=== PATIENT | female | born 1970 | race Caucasian/White ===

== ENCOUNTER 2021-03-01 14:49 | Emergency (ER) | payer BC ==
[~2021-03-01] VITALS: Ht 175 cm; Wt 73.0 kg
[~2021-03-01 14:49] MED LIST: AGM875T PO; DOXY100C2 PO; HORMONE; ONDAN4ODT PO; PRED20TA PO
[2021-03-01] MEDS ORDERED: KETOROLAC 30 MG/ML VIAL IVP STA (15:09)
[2021-03-01] MEDS ORDERED: ASPIRIN 81 MG CHEW (CHILDREN'S ASA) PO ONE (15:15)
--- NOTE | 2021-03-01 15:21 | ED Chest Pain ---
General Chief Complaint: Chest Pain Stated Complaint: CP Nursing Triage Note: PT TO RM 2 WITH CC OF CHEST PAIN THAT SHE WOKE UP WITH AT 0400 THIS A.M. MID CHEST PRESSURE Source: patient Exam Limitations: no limitations History of Present Illness Date Seen by Provider: Mar 01, 2021 Time Seen by Provider: 15:00 Initial Comments Here with complaint of chest pain that is central that woke her up at a.m. States that pain is a sharp pressure that is central and nonradiating and just between the breast at the bra line. Not reproducible. She has never had pain like this before and never had cardiac work-up. She is a little scared currently. Apparently her father does have some family history although he had alcohol abuse and was a smoker as well. Denies recent illness, nausea, vomiting, diarrhea, sweating or weakness. Timing/Duration: 12 hours Severity/Quality: moderate, pressure, sharp Location: central Radiation: no radiation Activities at Onset: sleep Prior CP/Workup: no prior chest pain, no prior cardiac workup Modifying Factors: improves with rest ASA po ORTHO/PROSTHETIC AIDE: No NTG SL ORTHO/PROSTHETIC AIDE: No Associated Symptoms: No abdominal pain, No back pain, No diaphoresis, No fatigue, No heartburn, No nausea/vomiting, No shortness of breath, No weakness Allergies and Home Medications Allergies Coded Allergies: paroxetine (Verified Allergy, Intermediate, 03/01/21) Home Medications Amoxicillin/Clavulanate K 875 Mg Tab, 1 TAB PO BID Prescribed by: CARLOS EDUARDO RODRIGUES on 01/10/151752 Doxycycline Hyclate 100 Mg Capsule, 0 PO DAILY 1 CAP Q12HR TODAY, THE 1 CAP DAILY Prescribed by: CARLOS EDUARDO RODRIGUES on 05/21/122242 Ondansetron Hcl 4 Mg Tab, 4 MG PO Q4H Prescribed by: CARLOS EDUARDO RODRIGUES on 05/21/122242 Prednisone 20 Mg Tablet, 20 MG PO DAILY Prescribed by: CARLOS EDUARDO RODRIGUES on 01/10/151752 Patient Home Medication List Home Medication List Reviewed: Yes Review of Systems Review of Systems Constitutional: see HPI; No chills, No fever EENTM: See HPI Respiratory: See HPI Cardiovascular: See HPI Gastrointestinal: See HPI Genitourinary: No Symptoms Reported Musculoskeletal: No back pain, No muscle pain Skin: No change in color, No lesions Psychiatric/Neurological: No Symptoms Reported All Other Systems Reviewed Negative Unless Noted: Yes Past Czkkily-Degjpi-Pqozdf Hx Patient Social History Tobacco Use?: Yes Tobacco type used: Cigarettes Smoking Status: Current Everyday Smoker Substance use?: No Past Medical History Section, Hysterectomy, Tubal Ligation Reproductive Disorders: No Sexually Transmitted Disease: No Family Medical History Reviewed Nursing Family Hx Heart Disease Physical Exam Vital Signs Vital Signs - First Documented 03/01/21 14:53 Temp 35.6 Pulse 78 Resp 20 B/P (MAP) 133/90 (104) Pulse Ox 100 O2 Delivery Room Air Capillary Refill : Less Than 3 Seconds Height, Weight, BMI Height: 5'7" Weight: 155lbs. oz. 70.966545ih; 23.00 BMI Method:Estimated General Appearance: WD/WN, Anxious HEENT: PERRL/EOMI, Pharynx Normal Neck: Non Tender, Supple Respiratory: Lungs Clear, Normal Breath Sounds Cardiovascular: Regular Rate, Rhythm, No Murmur Gastrointestinal: Non Tender, Soft Extremity: Normal Range of Motion, Non Tender Neurologic/Psychiatric: Alert, Oriented x3 Skin: Normal Color, Warm/Dry Progress/Results/Core Measures Results/Orders Lab Results Laboratory Tests Test 03/01/21 15:00 Range/Units White Blood Count 7.2 4.3-11.0 10^3/uL Red Blood Count 5.03 3.80-5.11 10^6/uL Hemoglobin 14.8 11.5-16.0 g/dL Hematocrit 44 35-52 % Mean Corpuscular Volume 88 80-99 fL Mean Corpuscular Hemoglobin 29 25-34 pg Mean Corpuscular Hemoglobin Concent 34 32-36 g/dL Red Cell Distribution Width 11.9 10.0-14.5 % Platelet Count 278 130-400 10^3/uL Mean Platelet Volume 9.7 9.0-12.2 fL Immature Granulocyte % (Auto) 0 % Neutrophils (%) (Auto) 53 42-75 % Lymphocytes (%) (Auto) 39 12-44 % Monocytes (%) (Auto) 7 0-12 % Eosinophils (%) (Auto) 1 0-10 % Basophils (%) (Auto) 0 0-10 % Neutrophils # (Auto) 3.8 1.8-7.8 10^3/uL Lymphocytes # (Auto) 2.8 1.0-4.0 10^3/uL Monocytes # (Auto) 0.5 0.0-1.0 10^3/uL Eosinophils # (Auto) 0.1 0.0-0.3 10^3/uL Basophils # (Auto) 0.0 0.0-0.1 10^3/uL Immature Granulocyte # (Auto) 0.0 0.0-0.1 10^3/uL Prothrombin Time 13.4 12.2-14.7 SEC INR Comment 1.0 0.8-1.4 Activated Partial Thromboplast Time 26 24-35 SEC D-Dimer 0.32 0.00-0.49 UG/ML Sodium Level 141 135-145 MMOL/L Potassium Level 3.5 L 3.6-5.0 MMOL/L Chloride Level 104 98-107 MMOL/L Carbon Dioxide Level 27 21-32 MMOL/L Anion Gap 10 5-14 MMOL/L Blood Urea Nitrogen 13 7-18 MG/DL Creatinine 0.89 0.60-1.30 MG/DL Estimat Glomerular Filtration Rate > 60 BUN/Creatinine Ratio 15 Glucose Level 69 L 70-105 MG/DL Calcium Level 9.9 8.5-10.1 MG/DL Corrected Calcium 9.6 8.5-10.1 MG/DL Magnesium Level 2.5 H 1.6-2.4 MG/DL Total Bilirubin 0.3 0.1-1.0 MG/DL Aspartate Amino Transf (AST/SGOT) 20 5-34 U/L Alanine Aminotransferase (ALT/SGPT) 17 0-55 U/L Alkaline Phosphatase 67 40-136 U/L Myoglobin 50.2 10.0-92.0 NG/ML Troponin I < 0.028 <0.028 NG/ML Total Protein 7.4 6.4-8.2 GM/DL Albumin 4.4 3.2-4.5 GM/DL My Orders Orders - PATRICE JOAQUIN MD Cbc With Automated Diff (03/01/21 15:09) Magnesium (03/01/21 15:09) Chest 1 View, Ap/Pa Only (03/01/21 15:09) Ekg Tracing (03/01/21 15:09) Comprehensive Metabolic Panel (03/01/21 15:09) Myoglobin Serum (03/01/21 15:09) Protime With Inr (03/01/21 15:09) Partial Thromboplastin Time (03/01/21 15:09) O2 (03/01/21 15:09) Monitor-Rhythm Ecg Trace Only (03/01/21 15:09) Lipid Panel (03/02/21 06:00) Ed Iv/Invasive Line Start (03/01/21 15:09) Troponin I (03/01/21 15:09) Aspirin Chewable Tablet (Baby Aspirin Ch (03/01/21 15:15) Ketorolac Injection (Toradol Injection) (03/01/21 15:09) Fibrin Degradation Products (03/01/21 15:00) Lidocaine 2% Viscous 15 Ml (Xylocaine Vi (03/01/21 15:45) Antacid Suspension (Mylanta Suspension (03/01/21 15:45) Medications Given in ED Current Medications Medications Dose Ordered Sig/Rashmi Route Start Time Stop Time Status Last Admin Dose Admin Al Hydrox/Mg Hydrox/Simethicone 30 ml ONCE ONCE PO 03/01/21 15:45 03/01/21 15:46 DC 03/01/21 15:43 30 ML Aspirin 324 mg ONCE ONCE PO 03/01/21 15:15 03/01/21 15:20 DC 03/01/21 15:44 324 MG Lidocaine HCl 15 ml ONCE ONCE PO 03/01/21 15:45 03/01/21 15:46 DC 03/01/21 15:43 15 ML Vital Signs/I&O 03/01/21 03/01/21 03/01/21 14:53 15:03 15:43 Temp 35.6 35.6 Pulse 78 Resp 20 B/P (MAP) 133/90 (104) Pulse Ox 100 O2 Delivery Room Air Room Air Blood Pressure Mean: 104 Progress Progress Note : Progress Note Seen and evaluated. IV, labs, chest x-ray and EKG ordered. ASA 324 mg p.o. GI cocktail ordered. Toradol 30 mg IV ordered. Monitor patient. 1730: Pain-free currently in has been for the last 30 minutes and declined since medications given. Troponin negative. No indication of cardiac cause or pulmonary embolism. I do believe this is more related to reflux type disease given current setting although I did discuss with her at length regarding the need for follow-up with cardiology. She will follow up with cardiology as outpatient as well as surgery for upper endoscopy and her primary care doctor. Discharged home with return precautions. Patient verbalized understanding of instructions and agreement with plan. Initial ECG Impression Date: Mar 01, 2021 Initial ECG Impression Time: 14:55 Initial ECG Rate: 72 Initial ECG Rhythm: Normal Sinus Comment Sinus rhythm with left atrial abnormality. Normal axis. No evidence of ST elevation CT. No previous available for comparison. Interpreted by me. Diagnostic Imaging Diagonstic Imaging: Xray Plain Films/CT/US/NM/MRI: chest Comments [facility], [place] NAME: [facility] REC#: [id number] PT STATUS: REG ER : 1970 PHYSICIAN: PATRICE JOAQUIN MD ADMIT DATE: 03/01/21/ER Signed Date of Exam:03/01/21 CHEST 1 VIEW, AP/PA ONLY INDICATION: Chest pain. COMPARISON: None available. TECHNIQUE: Single frontal radiograph of the chest dated 03/01/2021. FINDINGS: The cardiac silhouette is within normal limits in size. No significant pulmonary vascular congestion. The left lung is clear. Blunting of the right costophrenic angle. Otherwise, the right lung is clear. No significant left pleural effusion. No pneumothorax. No acute osseous abnormality. IMPRESSION: Blunting of the right costophrenic angle is felt to relate to a small pleural effusion versus mild pleural thickening/scarring. Dictated by: Dictated on workstation # [id number] Dict: 03/01/21 1625 Trans: 03/01/21 1711 [id number] Interpreted by: RICHI OBRIEN MD Electronically signed by: RICHI OBRIEN MD 03/01/21 1711 Departure Impression Primary Impression: Chest pain Qualified Codes: R07.9 - Chest pain, unspecified Additional Impression: Epigastric abdominal pain Disposition: 01 HOME, SELF-CARE Condition: Improved Departure-Patient Inst. Decision time for Depature: 17:34 Referrals: AYAAN KOWALSKI (PCP) Primary Care Physician [facility] (Family) Primary Care Physician JUNIOR CALDERON MD, BASHAR J MD Patient Instructions: Chest Pain (DC), Acid Reflux and Gastroesophageal Reflux Disease in Adults Add. Discharge Instructions: All discharge instructions reviewed with patient and/or family. Voiced understanding. You should initiate omeprazole [id number] 20 mg daily for the next 6 weeks. For the next 7 days and then as needed you may take Pepcid or the generic famotidine, 20 mg once or twice daily to reduce symptoms. You should avoid caffeinated beverages or high acid or spicy foods or drinks. You may take Tylenol/acetaminophen 1000 mg every 6-8 hours as needed for pain. You should probably avoid ibuprofen, Motrin, naproxen or Aleve as this may increase your stomach upset. Follow-up with the surgeon listed or of your choosing for further evaluation including upper endoscopy (scope) as needed. Follow-up with forestry farm laborer listed or of your choosing for further evaluation related to heart problems given your history. Return for worse pain, fever, vomiting, weakness, breathing problems, inappropriate sweating or other concerns as needed. PATRICE JOAQUIN MD Mar 01, 2021 15:21
[2021-03-01 15:28] LABS: BASOPHILS % (AUTO) 0 % (0-10); EOSINOPHILS # (AUTO) 0.1 10^3/uL (0.0-0.3); EOSINOPHILS % (AUTO) 1 % (0-10); HEMATOCRIT 44 % (35-52); HEMOGLOBIN 14.8 g/dL (11.5-16.0); LYMPHOCYTES # (AUTO) 2.8 10^3/uL (1.0-4.0); LYMPHOCYTES % (AUTO) 39 % (12-44); MEAN CORPUSCULAR HEMOGLOBIN 29 pg (25-34); MEAN CORPUSCULAR HGB CONC 34 g/dL (32-36); MEAN CORPUSCULAR VOLUME 88 fL (80-99); MEAN PLATELET VOLUME 9.7 fL (9.0-12.2); MONOCYTES # (AUTO) 0.5 10^3/uL (0.0-1.0); MONOCYTES % (AUTO) 7 % (0-12); NEUTROPHILS # (AUTO) 3.8 10^3/uL (1.8-7.8); NEUTROPHILS % (AUTO) 53 % (42-75); PLATELET COUNT 278 10^3/uL (130-400); WHITE BLOOD COUNT 7.2 10^3/uL (4.3-11.0)
[2021-03-01 15:39] LABS: ALANINE AMINOTRANSFERASE 17 U/L (0-55); ALBUMIN 4.4 GM/DL (3.2-4.5); ALKALINE PHOSPHATASE 67 U/L (40-136); BILIRUBIN,TOTAL 0.3 MG/DL (0.1-1.0); BUN/CREATININE RATIO 15; CALCIUM 9.9 MG/DL (8.5-10.1); CARBON DIOXIDE 27 MMOL/L (21-32); CHLORIDE 104 MMOL/L (98-107); CREATININE SERUM 0.89 MG/DL (0.60-1.30); GFR ESTIMATED > 60; GLUCOSE 69 MG/DL (70-105); MAGNESIUM 2.5 MG/DL (1.6-2.4); POTASSIUM 3.5 MMOL/L (3.6-5.0); SODIUM 141 MMOL/L (135-145); TOTAL PROTEIN 7.4 GM/DL (6.4-8.2)
[2021-03-01] MEDS ORDERED: ANTACID SUSP 30 ML UDC (MYLANTA) PO ONE (15:45)
[2021-03-01] MEDS ORDERED: LIDOCAINE 2% VISCOUS 15 ML UDC PO ONE (15:45)
[2021-03-01 15:52] LABS: FIBRIN DEGRADATION PRODUCTS 0.32 UG/ML (0.00-0.49); PROTHROMBIN TIME PATIENT 13.4 SEC (12.2-14.7)
--- NOTE | 2021-03-01 16:29 | Diagnostic Imaging Report ---
INDICATION: Chest pain. COMPARISON: None available. TECHNIQUE: Single frontal radiograph of the chest dated 03/01/2021. FINDINGS: The cardiac silhouette is within normal limits in size. No significant pulmonary vascular congestion. The left lung is clear. Blunting of the right costophrenic angle. Otherwise, the right lung is clear. No significant left pleural effusion. No pneumothorax. No acute osseous abnormality. IMPRESSION: Blunting of the right costophrenic angle is felt to relate to a small pleural effusion versus mild pleural thickening/scarring. Dictated by: Dictated on workstation # [id number]
[2021-03-01 17:48] VITALS: BP 127/91
== END 2021-03-01 17:51 | disposition home or self-care (01) ==
LOC: EDUNIT# 14:49 → ER 14:51
DX: R07.9 Chest pain, unspecified (principal); R10.13 Epigastric pain; F17.210 Nicotine dependence, cigarettes, uncomplicated; Z79.52 Long term (current) use of systemic steroids
CPT/HCPCS: 36415; 71045; 80053; 83735; 83874; 84484; 85025; 85379; 85610; 85730; 93005; 93041